=== PATIENT | female | born 1995 | race Caucasian/White ===

== ENCOUNTER → 2022-10-06 | Outpatient (CLI) | payer OTHER ==
[2022-10-12 06:11] LABS: HPV APTIMA Negative (Negative)
== END ==
LOC: LAB SHORT 11:51 → LAB 11:51
PROVIDERS: Obstetrics & Gynecology
DX: Z01.419 Encounter for gynecological examination (general) (routine) without abnormal findings (principal)
CPT/HCPCS: G0123

== ENCOUNTER → 2023-06-20 | Outpatient (CLI) | payer OTHER | END | disposition home or self-care (01) | LOC: LAB SHORT 11:54 → LAB 11:54 | DX: O30.003 Twin pregnancy, unspecified number of placenta and unspecified number of amniotic sacs, third trimester (principal) | CPT/HCPCS: 87081; 87150 ==

== ENCOUNTER 2023-06-26 23:31 | Inpatient (IN) | payer OTHER ==
[~2023-06-26] VITALS: Ht 167.6 cm; Wt 66.3 kg
[2023-06-27] VITALS (34 sets, daily range): BP systolic 90–156; BP diastolic 46–97
[2023-06-27 00:35] LABS: BASOPHILS ABSOLUTE AUTO 0.03 K/mm3 (0.00-0.23); BASOPHILS PERCENT AUTO 0 % (0-2); EOSINOPHILS ABSOLUTE AUTO 0.09 K/mm3 (0.00-0.68); EOSINOPHILS PERCENT AUTO 1 % (0-6); Hematocrit 42.3 % (33.0-51.0); Hemoglobin 14.7 g/dL (11.5-16.0); IMMATURE GRAN ABSOLUTE AUTO 0.06 K/mm3 (0.00-0.10); IMMATURE GRAN PERCENT AUTO 1 % (0-1); LYMPHOCYTES ABSOLUTE AUTO 2.21 K/mm3 (0.84-5.20); LYMPHOCYTES PERCENT AUTO 22 % (21-46); MONOCYTES ABSOLUTE AUTO 0.91 K/mm3 (0.16-1.47); MONOCYTES PERCENT AUTO 9 % (4-13); Mean Corpuscular HGB 30.9 pg (26.0-34.0); Mean Corpuscular HGB Conc 34.8 g/dL (31.5-36.5); Mean Corpuscular Volume 89 fL (80-100); Mean Platelet Volume 11.4 fL (9.1-12.4); NEUTROPHILS PERCENT AUTO 67 % (41-73); Platelet Count 157 K/mm3 (150-400); RDW Standard Deviation 39.1 fL (35.1-46.3); Red Blood Cell Count 4.76 M/mm3 (3.80-5.20)
--- NOTE | 2023-06-27 18:37 | NUR ---
dr yanez called rn to discuss pt urinary output. updated that pt could not urinate at the 6 hour carlos enrique, was straight cathed by nisa magdaleno and recieved 2000ml out, updated that pt urinated at 1810 and autibly urinated alot, dr yanez wanted rn to bladder scan pt and if more than [address] bladder to [address] a cintron cath, rn followed orders bladder held 432mls. no cintron was inserted.
[2023-06-28 00:01] VITALS: BP 112/57
[2023-06-28 05:35] LABS: Hematocrit 31.4 % (33.0-51.0); Hemoglobin 10.8 g/dL (11.5-16.0); Mean Corpuscular HGB 30.6 pg (26.0-34.0); Mean Corpuscular HGB Conc 34.4 g/dL (31.5-36.5); Mean Corpuscular Volume 89 fL (80-100); Mean Platelet Volume 11.3 fL (9.1-12.4); Platelet Count 125 K/mm3 (150-400); RDW Coefficient Variation 12.4 % (11.7-14.2); RDW Standard Deviation 39.4 fL (35.1-46.3); Red Blood Cell Count 3.53 M/mm3 (3.80-5.20); White Blood Cell Count 13.19 K/mm3 (4.00-11.30)
[2023-06-28 06:12] VITALS: BP 117/58
[2023-06-28 08:18] VITALS: BP 112/59
[2023-06-28 12:05] VITALS: BP 117/57
== END 2023-06-28 12:20 | disposition home or self-care (01) | DRG 807 ==
LOC: BC 23:31 → OBS 23:31 → BC 23:33 → OBS 06-27 00:20 → BC 06-27 00:21
PROVIDERS: ADMIT Obstetrics & Gynecology
PROC: 10E0XZZ Delivery of Products of Conception, External Approach (ICD-10-PCS; principal; 2023-06-27)
PROC: 0KQM0ZZ Repair Perineum Muscle, Open Approach (ICD-10-PCS; 2023-06-27)
PROC: 3E0R3BZ Introduction of Anesthetic Agent into Spinal Canal, Percutaneous Approach (ICD-10-PCS; 2023-06-27)
PROC: 00HU33Z Insertion of Infusion Device into Spinal Canal, Percutaneous Approach (ICD-10-PCS; 2023-06-27)
DX: O60.14X0 Preterm labor third trimester with preterm delivery third trimester, not applicable or unspecified (principal); Z37.2 Twins, both liveborn; Z3A.36 36 weeks gestation of pregnancy; O36.5931 Maternal care for other known or suspected poor fetal growth, third trimester, fetus 1; O30.033 Twin pregnancy, monochorionic/diamniotic, third trimester; O99.824 Streptococcus B carrier state complicating childbirth; O70.1 Second degree perineal laceration during delivery
CPT/HCPCS: 36415; 51702; 59025; 85025; 85027; 86850; 86900; 86901; A9270; J0290; J1885; J2590; J7120

== ENCOUNTER → 2023-09-19 | Outpatient (CLI) | payer OTHER ==
[2023-09-22 04:10] LABS: CHLAMYDIA BY NAA Negative (Negative); GONOCOCCUS BY NAA Negative (Negative); TRICH VAG BY NAA Negative (Negative)
== END | disposition home or self-care (01) ==
LOC: LAB 11:09 → LAB SHORT 11:09
PROVIDERS: Obstetrics & Gynecology
DX: Z11.3 Encounter for screening for infections with a predominantly sexual mode of transmission (principal)
CPT/HCPCS: 87491; 87591; 87661

== ENCOUNTER → 2025-07-09 | Outpatient (CLI) | payer OTHER | LOC: LAB 10:10 → LAB SHORT 10:10 | PROVIDERS: Obstetrics & Gynecology | DX: Z01.419 Encounter for gynecological examination (general) (routine) without abnormal findings (principal) | CPT/HCPCS: 87624; G0145 ==